=== PATIENT | female | born 1995 | race Two or more races ===

== ENCOUNTER 2021-08-01 22:19 | Emergency (ER) | payer MEDICAID, OTHER ==
[~2021-08-01] VITALS: Ht 162.6 cm; Wt 63.5 kg
[~2021-08-01 22:19] MED LIST: METF-370 PO; PRENPAK46 OR
[2021-08-01 22:39] VITALS: BP 118/70
== END 2021-08-01 22:53 | disposition left against medical advice (07) ==
LOC: ER 22:21
DX: S60.452A Superficial foreign body of right middle finger, initial encounter (principal); Z53.21 Procedure and treatment not carried out due to patient leaving prior to being seen by health care provider; X58.XXXA Exposure to other specified factors, initial encounter; Y93.89 Activity, other specified; Y92.89 Other specified places as the place of occurrence of the external cause; Y99.8 Other external cause status

== ENCOUNTER → 2024-09-21 | Outpatient (CLI) | payer MEDICAID ==
[2024-09-21 09:15] LABS: Urine Bacteria None Seen /hpf (None Seen)
[2024-09-21 09:24] LABS: Basophils # (auto) 0.1 10 ^3/uL (0-0.2); Eosinophils # (auto) 0.1 10 ^3/uL (0-0.8); Hematocrit 37.4 % (36.0-46.0); Lymphocytes # (auto) 2.2 10 ^3/uL (0.4-5.4); Mean Corpuscular Volume 79.6 fL (80.0-100.0); Monocytes # (auto) 0.4 10 ^3/uL (0-1.3); Neutrophils # (auto) 3.7 10 ^3/uL (1.6-8.6); White Blood Cell 6.5 10^3/uL (4.4-10.8)
[2024-09-21 09:27] LABS: Basophils % (auto) 0.9 % (0.0-2.0); Eosinophils % (auto) 1.4 % (0.0-7.0); Hemoglobin 12.1 g/dL (12.2-16.2); Lymphocytes % (auto) 34.4 % (10.0-50.0); Mean Corpuscular Hemoglobin 25.7 pg (28.0-32.0); Mean Corpuscular Hgb Conc. 32.3 g/dL (32.0-36.0); Monocytes % (auto) 6.8 % (0.0-12.0); Neutrophils % (auto) 56.5 % (37.0-80.0); Platelet Count (auto) 372 10^3/uL (140-450); Red Blood Cells 4.69 10^6/uL (4.0-5.20)
[2024-09-21 10:14] LABS: Urine Blood Negative /uL (Negative); Urine Clarity Clear (Clear); Urine Color Colorless (Yellow); Urine Protein, UAD Negative (Negative); Urine Specific Gravity 1.005 (1.001-1.035); Urine Urobilinogen Normal (Negative); Urine WBC 1 /hpf (0 - 5); Urine pH 5.5 (5.0-9.0)
[2024-09-21 10:21] LABS: Alanine Aminotransferase 10 U/L (7-40); Alkaline Phosphatase 78 U/L (46-116); Anion Gap 8 (5-15); Calcium 10.1 mg/dL (8.7-10.4); Carbon Dioxide 26 mmol/L (20-31); Chloride 104 mmol/L (98-107); Glucose 92 mg/dL (74-106); Potassium 4.2 mmol/L (3.5-5.1); Sodium 138 mmol/L (136-145)
[2024-09-21 10:22] LABS: BUN/Creatinine Ratio 6.9 (10.0-20.0); Blood Urea Nitrogen 5 mg/dL (9-23); Triglycerides 81 mg/dL (< 150)
[2024-09-21 10:23] LABS: Albumin 4.7 g/dL (3.2-4.8); Aspartate Aminotransferase 10 U/L (13-40); Cholesterol 172 mg/dL (< 200); LDL Cholesterol 115 mg/dL (< 100)
[2024-09-21 10:24] LABS: Bilirubin, Total 0.5 mg/dL (0.2-1.0); HDL Cholesterol 53 mg/dL (40-59); Total Protein 7.9 g/dL (5.7-8.2)
== END | disposition home or self-care (01) ==
LOC: LAB 09:01
PROVIDERS: ATTEND Internal Medicine
DX: M79.671 Pain in right foot (principal); E66.9 Obesity, unspecified; R42 Dizziness and giddiness; Z00.00 Encounter for general adult medical examination without abnormal findings
CPT/HCPCS: 36415; 80053; 80061; 81001; 83036; 84443; 85025

== ENCOUNTER → 2025-02-22 | Outpatient (CLI) | payer MEDICAID ==
[2025-02-22 10:14] LABS: Erythrocyte Sedimentation Rate 8 mm/hr (0-20)
[2025-02-23 07:07] LABS: Thyroid Peroxidase (TPO) Ab 27 IU/mL (0-34)
[2025-02-23 08:08] LABS: Complement C3 161 mg/dL (82-167); Rheumatoid Arthritis Factor 10.8 IU/mL (<14.0)
[2025-02-23 13:07] LABS: Anti-Nuclear Antibody Direct Negative (Negative); Anti-dsDNA Antibody 1 IU/mL (0-9); Antiscleroderma-70 Antibody <0.2 AI (0.0-0.9); RNP Antibody 0.2 AI (0.0-0.9); Sjogren's Anti-SS-A Antibody <0.2 AI (0.0-0.9); Sjogren's Anti-SS-B Antibody <0.2 AI (0.0-0.9); Smith Antibody <0.2 AI (0.0-0.9)
== END | disposition home or self-care (01) ==
LOC: LAB 08:49
PROVIDERS: ATTEND Internal Medicine
DX: D64.9 Anemia, unspecified (principal); E16.2 Hypoglycemia, unspecified; R55 Syncope and collapse
CPT/HCPCS: 36415; 85652; 86141; 86160; 86225; 86235; 86376; 86431

== ENCOUNTER 2025-08-18 09:43 | Outpatient (CLI) | payer MEDICAID ==
[2025-08-18 11:15] LABS: Hemoglobin 12.9 g/dL (12.2-16.2); Nucleated Red Blood Cells % 0.0 %
[2025-08-18 11:17] LABS: Hematocrit 39.4 % (36.0-46.0); Mean Corpuscular Hemoglobin 26.2 pg (28.0-32.0); Mean Corpuscular Volume 79.9 fL (80.0-100.0)
[2025-08-18 11:37] LABS: Alanine Aminotransferase 12 U/L (7-40); Albumin 4.6 g/dL (3.2-4.8); Alkaline Phosphatase 71 U/L (46-116); Anion Gap 7 (5-15); BUN/Creatinine Ratio 11.0 (10.0-20.0); Blood Urea Nitrogen 8 mg/dL (9-23); Calcium 9.5 mg/dL (8.7-10.4); Carbon Dioxide 28 mmol/L (20-31); Chloride 103 mmol/L (98-107); Glucose 86 mg/dL (74-106); Potassium 4.2 mmol/L (3.5-5.1); Sodium 138 mmol/L (136-145); Total Protein 8.0 g/dL (5.7-8.2)
[2025-08-18 11:38] LABS: Bilirubin, Total 0.5 mg/dL (0.2-1.0)
[2025-08-18 11:39] LABS: Urine Protein, UAD Negative (Negative)
[2025-08-18 12:04] LABS: Cholesterol 163 mg/dL (< 200)
[2025-08-18 12:18] LABS: Bilirubin, Direct 0.2 mg/dL (<0.3); Triglycerides 84 mg/dL (< 150)
[2025-08-18 12:32] LABS: HDL Cholesterol 53 mg/dL (40-59)
[2025-08-19 10:51] LABS: Hepatitis B Surface Antigen Negative (Negative); Hepatitis C Antibody Negative (Negative)
[2025-08-20 06:06] LABS: Chlamydia Trachomatis, NAA Negative (Negative); Neisseria gonorrhoeae, NAA Negative (Negative)
== END 2025-08-18 17:00 | disposition home or self-care (01) ==
LOC: LAB 09:43
PROVIDERS: ATTEND Internal Medicine
DX: R07.9 Chest pain, unspecified (principal); Z11.3 Encounter for screening for infections with a predominantly sexual mode of transmission; Z79.899 Other long term (current) drug therapy
CPT/HCPCS: 36415; 80048; 80061; 80074; 80076; 81003; 83036; 84443; 85025; 85379; 86592; 86703; 86780

== ENCOUNTER 2025-08-30 08:11 | Outpatient (CLI) | payer MEDICAID ==
--- NOTE | 2025-08-30 13:32 | DVHSR ---
APPROVED REPORT EXAM: Two-dimensional and M-mode echocardiogram with Doppler and color Doppler. RISK FACTORS Obesity: DIMENSIONS LVDd4.7 (3.8-5.7cm)LA (2D)3.7 (1.9-4.0cm)Aortic Root3.1 (2.0-3.7cm) LVDs3.2 (2.5-4.0cm)LA (MM) (1.9-4.0cm)Aortic Cusp Exc1.7 (1.5-2.0cm) EF (%) 60.0 (55-70%)Rt. Atrium3.8 (1.9-4.0cm)Asc. Aorta cm IVSd1.1 (0.7-1.1cm)RV (D) (1.8-2.4cm) PWd1.0 (0.7-1.1cm) Mitral Valve MitralMitral Stenosis E wave0.90m/sMV Mean GR.mmHg A wave0.51m/sMV Peak GR.mmHg E/A ratio1.82D MVAcm2 DECEL [id number] 1/2 [place] Aortic Valve Aortic ValveAortic Stenosis V10.75m/[place] Mean GR.3mmHg V21.08m/[place] Peak GR.5mmHg LVOT Diameter2.1 (1.8-2.4cm)Doppler AVA2.40cm2 Pulmonic Valve V20.78m/s LEFT VENTRICLE The left ventricle is normal size. The left ventricle is normal in structure and function. The Ejection Fraction is within normal limits. RIGHT VENTRICLE The right ventricle is normal size. ATRIA The left atrial size is normal. The right atrium size is normal. The interatrial septum is intact with no evidence for an atrial septal defect. MITRAL VALVE The mitral valve is normal in structure and function. Mitral regurgitation is trace. PULMONIC VALVE The pulmonic valve is not well visualized. TRICUSPID VALVE The tricuspid valve is grossly normal. AORTIC VALVE The aortic valve opens well. No aortic regurgitation is present. GREAT VESSELS The aortic root is normal size. PERICARDIAL EFFUSION There is no pericardial effusion. Other Information Technically limited study due to body habitus. Conclusion EF >55%
== END 2025-08-30 17:00 | disposition home or self-care (01) ==
LOC: Rad HDHVI 08:11
PROVIDERS: ATTEND Internal Medicine Cardiovascular Disease
DX: R06.02 Shortness of breath (principal)
CPT/HCPCS: 93306

== ENCOUNTER 2025-10-12 08:06 | Outpatient (CLI) | payer MEDICAID | END 2025-10-12 17:00 | disposition home or self-care (01) | LOC: Rad HDHVI 08:06 | PROVIDERS: ATTEND Internal Medicine Cardiovascular Disease | DX: R07.9 Chest pain, unspecified (principal); Z00.00 Encounter for general adult medical examination without abnormal findings | CPT/HCPCS: 93880 ==

== ENCOUNTER 2025-11-09 08:44 | Outpatient (CLI) | payer MEDICAID ==
[2025-11-09 10:43] LABS: Amylase 86 U/L (30-118)
[2025-11-09 11:05] LABS: Lipase 39 U/L (12-53)
[2025-11-10 08:07] LABS: Immunoglobulin A 116 mg/dL (87-352)
== END 2025-11-09 17:00 | disposition home or self-care (01) ==
LOC: LAB 08:44
PROVIDERS: ATTEND Internal Medicine
DX: D64.9 Anemia, unspecified (principal); E66.9 Obesity, unspecified; A53.9 Syphilis, unspecified; R19.4 Change in bowel habit; R10.9 Unspecified abdominal pain; Z79.899 Other long term (current) drug therapy
CPT/HCPCS: 36415; 82150; 82306; 82607; 82784; 83516; 83690; 84443; 85048; 86255; 87045; 87177; 87427